=== PATIENT | male | born 1950 | race Asian ===

== ENCOUNTER → 2016-11-30 | Outpatient (CLI) | payer OTHER ==
[~2016-11-30] MED LIST: ASPI81TA3 PO; PSYL1PAC8 PO
== END | disposition home or self-care (01) ==
LOC: PUL 11:10
PROVIDERS: ATTEND Physician Assistant
DX: R93.8 Abnormal findings on diagnostic imaging of other specified body structures (principal)
CPT/HCPCS: 94060; 94640; 94726; 94729

== ENCOUNTER 2018-03-13 10:11 | Day surgery (SDC) | END 2018-03-13 12:09 | disposition home or self-care (01) ==